=== PATIENT | female | born 1960 | race African-American/Black ===

== ENCOUNTER 2016-02-22 09:30 | Outpatient (RCR) | payer OTHER, MEDICAID ==
[~2016-02-22 09:30] MED LIST: CATAPRES0.1 MG ORAL; COZAAR50 MG ORAL; CYCLOBENZAPRINE10 MG PO; DIABETA5 MG ORAL; DITROPAN10 MG ORAL; ESTRACE1 MG ORAL; GLUCOPHAGE500 MG ORAL; LEVOTHYROXINE112 MCG ORAL; LEVOTHYROXINE125 MCG ORAL; NAPROXEN250 MG ORAL; NORCO 5-325 TA1 EACH ORAL; NORETHINDRONE0.35 MG PO; PREMPRO 0.3 MG1 EACH ORAL; PROMETRIUM100 MG PO; TAPAZOLE10 MG ORAL; TENORMIN50 MG ORAL; TIZANIDINE HCL4 MG ORAL
== END 2016-03-11 | disposition home or self-care (01) ==
LOC: PTY 09:30
PROVIDERS: ATTEND Internal Medicine
DX: M75.112 Incomplete rotator cuff tear or rupture of left shoulder, not specified as traumatic (principal); I10 Essential (primary) hypertension; E11.9 Type 2 diabetes mellitus without complications
CPT/HCPCS: 97110; 97140; G0283

== ENCOUNTER 2016-03-28 10:00 | Outpatient (RCR) | payer OTHER, MEDICAID | END 2016-04-08 | disposition home or self-care (01) | LOC: PTY 10:00 | PROVIDERS: ATTEND Internal Medicine | DX: M75.112 Incomplete rotator cuff tear or rupture of left shoulder, not specified as traumatic (principal) | CPT/HCPCS: 97110; 97140; G0283 ==

== ENCOUNTER 2016-10-31 09:58 | Outpatient (RCR) | payer OTHER, MEDICAID | END 2016-11-08 | disposition home or self-care (01) | LOC: PTY 09:58 | DX: M75.112 Incomplete rotator cuff tear or rupture of left shoulder, not specified as traumatic (principal) | CPT/HCPCS: 97110; 97140; 97162; G0283 ==

== ENCOUNTER 2016-11-28 09:00 | Outpatient (RCR) | payer OTHER, MEDICAID | END 2016-12-09 | disposition home or self-care (01) | LOC: PTY 09:00 | DX: M75.112 Incomplete rotator cuff tear or rupture of left shoulder, not specified as traumatic (principal) | CPT/HCPCS: 97140; G0283 ==

== ENCOUNTER 2016-12-25 09:54 | Outpatient (RCR) | payer OTHER, MEDICAID | END 2017-01-08 | disposition home or self-care (01) | LOC: PTY 09:54 | DX: M75.112 Incomplete rotator cuff tear or rupture of left shoulder, not specified as traumatic (principal); E11.9 Type 2 diabetes mellitus without complications; I10 Essential (primary) hypertension | CPT/HCPCS: 97110; 97140; G0283 ==

== ENCOUNTER 2017-02-04 10:30 | Outpatient (RCR) | payer OTHER, MEDICAID | END 2017-02-08 | disposition home or self-care (01) | LOC: PTY 10:30 | DX: M75.112 Incomplete rotator cuff tear or rupture of left shoulder, not specified as traumatic (principal) | CPT/HCPCS: 97110; 97140; G0283 ==

== ENCOUNTER → 2017-03-11 | Outpatient (RCR) | payer OTHER, MEDICAID | END | disposition home or self-care (01) | LOC: PTY 02-18 10:14 | DX: M75.112 Incomplete rotator cuff tear or rupture of left shoulder, not specified as traumatic (principal) | CPT/HCPCS: 97110; 97140; G0283 ==

== ENCOUNTER 2017-03-20 10:00 | Outpatient (RCR) | payer OTHER, MEDICAID | END 2017-04-08 | disposition home or self-care (01) | LOC: PTY 10:00 | DX: M75.112 Incomplete rotator cuff tear or rupture of left shoulder, not specified as traumatic (principal) | CPT/HCPCS: 97110; 97140; G0283 ==